=== PATIENT | male | born 1975 | race Caucasian/White ===

== ENCOUNTER 2018-11-27 09:55 | Emergency (ER) | payer OTHER ==
[2018-11-27] MEDS ORDERED: HYDROmorphone 1 MG/ML Syringe IVPUSH ONE ×2 (10:52→15:42)
[2018-11-27] MEDS ORDERED: Sodium Chloride 0.9% 10 ML Syringe FLUSH PRN (10:52)
[2018-11-27] MEDS ORDERED: Ondansetron 4 MG/2 ML SDV IVPUSH ONE (10:53)
--- NOTE | 2018-11-27 10:55 | EDM.PDOC ---
ED HPI GENERAL MEDICAL PROBLEM - General Chief Complaint: General Stated Complaint: STOMACH PAIN Time Seen by Provider: 11/27/18 10:37 Source of Information: Reports: Patient, Old Records, RN Notes Reviewed History Limitations: Reports: No Limitations - History of Present Illness INITIAL COMMENTS - FREE TEXT/NARRATIVE: 43-year-old gentleman presents emergency department today complaint of abdominal pain, he has a known history of abdominal migraines this is his fourth visit to the emergency department he had a fairly extensive workup blood work done 5 days ago which did not reveal anything he has had a CAT scan within the last 3 months. What seems to provide comfort on all of the visits his 1 mg Dilaudid and Zofran and 1 L fluids. During was administered his visits to the emergency department he was diagnosed with urinary tract infection is currently on ciprofloxacin Abdominal Pain Score (Numeric/FACES): 10 - Related Data Allergies Allergy/AdvReac Type Severity Reaction Status Date / Time nickel Allergy Rash Verified 11/27/18 10:22 Home Meds: Home Meds Aspirin [[place] Aspirin EC] 81 mg PO DAILY 11/27/18 [History] Ciprofloxacin HCl [Cipro] 500 mg PO BID 11/27/18 [History] Dicyclomine [Bentyl] 10 mg PO QIDACANDBED 11/27/18 [History] Metoprolol Tartrate [Lopressor] 75 mg PO Q12HR 11/27/18 [History] Pantoprazole [ProTONIX] 40 mg PO DAILY 11/27/18 [History] Venlafaxine HCl [Venlafaxine ER] 150 mg PO DAILY 11/27/18 [History] atorvaSTATin [Lipitor] 10 mg PO DAILY 11/27/18 [History] atorvaSTATin [Lipitor] 20 mg PO DAILY 11/27/18 [History] Past Medical History Cardiovascular History: Reports: Afib Gastrointestinal History: Reports: Other (See Below) Other Gastrointestinal History: Abdomenal migraines Genitourinary History: Reports: Other (See Below) Other Genitourinary History: known uti swollen prostate Musculoskeletal History: Reports: Fracture Other Musculoskeletal History: fx r arm Psychiatric History: Reports: Anxiety, Depression - Infectious Disease History Infectious Disease History: Reports: Chicken Pox Social & Family History - Tobacco Use Smoking Status *Q: Current Every Day Smoker Years of Tobacco use: 20 Packs/Tins Daily: 0.5 Used Tobacco, but Quit: No Second Hand Smoke Exposure: Yes - Caffeine Use Caffeine Use: Reports: Coffee - Alcohol Use Days Per Week of Alcohol Use: 0 - Recreational Drug Use Recreational Drug Use: Yes Recreational Drug Type: Reports: Marijuana/Hashish Recreational Drug Use Frequency: Monthly ED ROS GENERAL - Review of Systems Review Of Systems: See Below Constitutional: Reports: No Symptoms Respiratory: Reports: No Symptoms Cardiovascular: Reports: No Symptoms GI/Abdominal: Reports: Abdominal Pain, Nausea, Vomiting : Reports: No Symptoms ED EXAM, GENERAL - Physical Exam Exam: See Below Exam Limited By: No Limitations General Appearance: Alert, Moderate Distress Respiratory/Chest: No Respiratory Distress GI/Abdominal: Normal Bowel Sounds, Soft, No Distention, Tender (Generalized tenderness) Course - Vital Signs Last Recorded V/S: Last Vital Signs Temp 96 F 11/27/18 10:35 Pulse 73 11/27/18 13:50 Resp 18 11/27/18 13:50 BP 148/77 H 11/27/18 13:50 Pulse Ox 100 11/27/18 13:50 - Orders/Labs/Meds Orders: Active Orders 24 hr Category Date Time Status Peripheral IV Care [RC] . DIRECTED Care 11/27/18 10:52 Active Sodium Chloride 0.9% [Normal Saline] 1,000 ml Med 11/27/18 11:00 Active IV ASDIRECTED Sodium Chloride 0.9% [Saline Flush] Med 11/27/18 10:52 Active 10 ml FLUSH ASDIRECTED PRN Peripheral IV Insertion Adult [OM.PC] Urgent Oth 11/27/18 10:52 Ordered Medication Orders Sodium Chloride (Normal Saline) 1,000 mls @ 999 mls/hr IV ASDIRECTED PALOMA Last Admin: 11/27/18 11:01 Dose: 999 mls/hr Sodium Chloride (Saline Flush) 10 ml FLUSH ASDIRECTED PRN PRN Reason: Keep Vein Open Labs: Laboratory Tests 11/27/18 11/27/18 11/27/18 Range/Units 12:45 12:57 12:58 WBC 16.3 H (4.5-11.0) K/uL RBC 4.95 (4.30-5.90) M/uL Hgb 15.2 H (12.0-15.0) g/dL Hct 44.3 (40.0-54.0) % MCV 90 (80-98) fL MCH 31 (27-31) pg MCHC 34 (32-36) % Plt Count 283 (150-400) K/uL Neut % (Auto) 83 H (36-66) % Lymph % (Auto) 11 L (24-44) % Sherman % (Auto) 5 (2-6) % Eos % (Auto) 0 L (2-4) % Baso % (Auto) 0 (0-1) % Sodium (140-148) mmol/L Potassium (3.6-5.2) mmol/L Chloride (100-108) mmol/L Carbon Dioxide (21-32) mmol/L Anion Gap (5.0-14.0) mmol/L BUN (7-18) mg/dL Creatinine (0.8-1.3) mg/dL Est Cr Clr Drug Dosing mL/min Estimated GFR (MDRD) (>60) Glucose (74-106) mg/dL Lactic Acid (0.4-2.0) mmol/L Calcium (8.5-10.1) mg/dL Total Bilirubin (0.2-1.0) mg/dL AST (15-37) U/L ALT (12-78) U/L Alkaline Phosphatase (46-116) U/L Troponin I (0.000-0.056) ng/mL Total Protein (6.4-8.2) g/dL Albumin (3.4-5.0) g/dL Globulin (2.3-3.5) g/dL Albumin/Globulin Ratio (1.2-2.2) Lipase 136 (73-393) U/L Urine Opiates Screen Presumptive positive H (NEGATIVE) Ur Oxycodone Screen Negative (NEGATIVE) Urine Methadone Screen Negative (NEGATIVE) Ur Propoxyphene Screen Negative (NEGATIVE) Ur Barbiturates Screen Negative (NEGATIVE) Ur Tricyclics Screen Negative (NEGATIVE) Ur Phencyclidine Scrn Negative (NEGATIVE) Ur Amphetamine Screen Presumptive positive H (NEGATIVE) U Methamphetamines Scrn Negative (NEGATIVE) Urine MDMA Screen Negative (NEGATIVE) U Benzodiazepines Scrn Negative (NEGATIVE) U Cocaine Metab Screen Negative (NEGATIVE) U Marijuana (THC) Screen Presumptive positive H (NEGATIVE) 11/27/18 11/27/18 Range/Units 12:58 12:58 WBC (4.5-11.0) K/uL RBC (4.30-5.90) M/uL Hgb (12.0-15.0) g/dL Hct (40.0-54.0) % MCV (80-98) fL MCH (27-31) pg MCHC (32-36) % Plt Count (150-400) K/uL Neut % (Auto) (36-66) % Lymph % (Auto) (24-44) % Sherman % (Auto) (2-6) % Eos % (Auto) (2-4) % Baso % (Auto) (0-1) % Sodium 138 L (140-148) mmol/L Potassium 4.1 (3.6-5.2) mmol/L Chloride 105 (100-108) mmol/L Carbon Dioxide 25 (21-32) mmol/L Anion Gap 12.1 (5.0-14.0) mmol/L BUN 16 (7-18) mg/dL Creatinine 0.9 (0.8-1.3) mg/dL Est Cr Clr Drug Dosing 108.15 mL/min Estimated GFR (MDRD) > 60 (>60) Glucose 124 H (74-106) mg/dL Lactic Acid 1.2 (0.4-2.0) mmol/L Calcium 9.0 (8.5-10.1) mg/dL Total Bilirubin 0.3 (0.2-1.0) mg/dL AST 25 (15-37) U/L ALT 38 (12-78) U/L Alkaline Phosphatase 58 (46-116) U/L Troponin I < 0.017 (0.000-0.056) ng/mL Total Protein 7.0 (6.4-8.2) g/dL Albumin 3.8 (3.4-5.0) g/dL Globulin 3.2 (2.3-3.5) g/dL Albumin/Globulin Ratio 1.2 (1.2-2.2) Lipase (73-393) U/L Urine Opiates Screen (NEGATIVE) Ur Oxycodone Screen (NEGATIVE) Urine Methadone Screen (NEGATIVE) Ur Propoxyphene Screen (NEGATIVE) Ur Barbiturates Screen (NEGATIVE) Ur Tricyclics Screen (NEGATIVE) Ur Phencyclidine Scrn (NEGATIVE) Ur Amphetamine Screen (NEGATIVE) U Methamphetamines Scrn (NEGATIVE) Urine MDMA Screen (NEGATIVE) U Benzodiazepines Scrn (NEGATIVE) U Cocaine Metab Screen (NEGATIVE) U Marijuana (THC) Screen (NEGATIVE) Meds: Medications Generic Name Dose Route Start Last Admin Trade Name Freq PRN Reason Stop Dose Admin Sodium Chloride 1,000 mls @ 999 mls/hr 11/27/18 11:00 11/27/18 11:01 Normal Saline IV 999 mls/hr ASDIRECTED PALOMA Administration Sodium Chloride 10 ml 11/27/18 10:52 Saline Flush FLUSH ASDIRECTED PRN Keep Vein Open Discontinued Medications Generic Name Dose Route Start Last Admin Trade Name Freq PRN Reason Stop Dose Admin Dexamethasone 4 mg 11/27/18 14:55 11/27/18 15:27 Dexamethasone IVPUSH 11/27/18 14:56 4 mg ONETIME ONE Administration Diphenhydramine HCl 25 mg 11/27/18 12:40 11/27/18 13:20 Benadryl IVPUSH 11/27/18 12:41 25 mg ONETIME ONE Administration Fentanyl 100 mcg 11/27/18 11:18 11/27/18 11:22 Sublimaze IVPUSH 11/27/18 11:19 100 mcg ONETIME ONE Administration Haloperidol Lactate 5 mg 11/27/18 12:40 11/27/18 13:18 Haldol IVPUSH 11/27/18 12:41 5 mg ONETIME ONE Administration Hydromorphone HCl 1 mg 11/27/18 10:52 11/27/18 11:03 Dilaudid IVPUSH 11/27/18 10:53 1 mg ONETIME ONE Administration Hydromorphone HCl 1 mg 11/27/18 15:42 11/27/18 15:55 Dilaudid IVPUSH 11/27/18 15:43 1 mg ONETIME ONE Administration Valproic Acid 500 mg/ Sodium 55 mls @ 55 mls/hr 11/27/18 15:15 11/27/18 15:28 Chloride IV 11/27/18 16:14 55 mls/hr ONETIME ONE Administration Ketorolac Tromethamine 30 mg 11/27/18 12:39 11/27/18 13:19 Toradol IVPUSH 11/27/18 12:40 30 mg ONETIME ONE Administration Ondansetron HCl 4 mg 11/27/18 10:53 11/27/18 11:02 Zofran IVPUSH 11/27/18 10:54 4 mg ONETIME ONE Administration Departure - Departure Time of Disposition: 17:36 Disposition: Home, Self-Care 01 Condition: Fair Clinical Impression: Abdominal migraine Qualifiers: Intractability: not intractable Qualified Code(s): G43.D0 - Abdominal migraine , not intractable - Discharge Information Referrals: PCP,None [Primary Care Provider] - Forms: ED Department Discharge Additional Instructions: Please keep your appointment with your primary care provider on monday - My Orders Last 24 Hours: My Active Orders 11/27/18 10:52 Peripheral IV Care [RC] . DIRECTED Sodium Chloride 0.9% [Saline Flush] 10 ml FLUSH ASDIRECTED PRN Peripheral IV Insertion Adult [OM.PC] Urgent 11/27/18 11:00 Sodium Chloride 0.9% [Normal Saline] 1,000 ml IV ASDIRECTED - Assessment/Plan Last 24 Hours: My Active Orders 11/27/18 10:52 Peripheral IV Care [RC] . DIRECTED Sodium Chloride 0.9% [Saline Flush] 10 ml FLUSH ASDIRECTED PRN Peripheral IV Insertion Adult [OM.PC] Urgent 11/27/18 11:00 Sodium Chloride 0.9% [Normal Saline] 1,000 ml IV ASDIRECTED Plan: Assessment Acuity = acute Site and laterality = abdominal migraine Etiology = unclear etiology Manifestations = nausea Location of injury = Home Lab values = CBC, CMP, troponin, lipase, lactic acid within normal limits urine drug screen positive for opiates, amphetamines and cannabis Plan With treatment in the ED finally had good relief of his abdominal migraine has follow-up appointments primary care This note was dictated using [employer] voice recognition software please call with any questions on syntax or grammar.
[2018-11-27] MEDS ORDERED: Sodium Chloride 0.9% 1,000 ML IV SCH (11:00)
[2018-11-27] MEDS ORDERED: fentaNYL 100 MCG/2 ML SDV IVPUSH ONE (11:18)
[2018-11-27] MEDS ORDERED: Ketorolac 30 MG/ML SDV IVPUSH ONE (12:39)
[2018-11-27] MEDS ORDERED: Haloperidol Lactate 5 MG/ML SDV IVPUSH ONE (12:40)
[2018-11-27] MEDS ORDERED: diphenhydrAMINE 50 MG/ML SDV IVPUSH ONE (12:40)
[2018-11-27] MEDS ORDERED: Dexamethasone 4 MG/ML SDV IVPUSH ONE (14:55)
== END 2018-11-27 17:56 | disposition home or self-care (01) ==
LOC: JP.ED 09:55
DX: G43.D0 Abdominal migraine, not intractable (principal); I48.91 Unspecified atrial fibrillation; F41.9 Anxiety disorder, unspecified; F32.9 Major depressive disorder, single episode, unspecified; F17.210 Nicotine dependence, cigarettes, uncomplicated; Z79.899 Other long term (current) drug therapy; Z79.82 Long term (current) use of aspirin; Z88.8 Allergy status to other drugs, medicaments and biological substances
CPT/HCPCS: 36415; 80053; 80305; 83605; 83690; 84484; 85025; 96361; 96365; 96375; 96376; 99283; J1100; J1170; J1200; J1630; J1885; J2405; J3010; J7030; J7050; J3490